=== PATIENT | female | born 1965 | race Caucasian/White ===

== ENCOUNTER 2016-11-13 22:24 | Emergency (ER) | payer MEDICARE ==
[2014-03-23 14:53] VITALS: BMI 38.2
[~2016-11-13 22:24] MED LIST: AMBIEN5 MG PO; ASACOL400 MG PO; BAYER CHEWABLE81 MG PO; CYCLOBENZAPRINE10 MG PO; CYMBALTA60 MG PO; ELAVIL10 MG PO; HYDROCODONE-APA1 TAB PO; LIBRAX CAPSULE1 CAP PO; LIPITOR40 MG PO; METAMUCIL FIB1 WAFER PO; NEXIUM40 MG PO; NITROSTAT0.4 MG SL; PHENERGAN25 M1 PO; PROAIR HFA8.5 GM INH; SYNTHROID100 MCG PO; TOPAMAX50 MG PO; TOPROL XL25 MG PO; VALIUM5 MG PO
[2016-11-13 23:11] LABS: BASOPHILS 0.5 % (0.0-2.0); EOSINOPHILS 1.1 % (0-7); HEMATOCRIT 44.8 % (36.0-48.0); HEMOGLOBIN 14.5 g/dL (12-16); IMMATURE GRANULOCYTES 0.2 % (0-5); LYMPHOCYTES 26.4 % (15-50); MCH 30.1 pg (26.0-34.0); MCHC 32.4 g/dL (31.0-37.0); MCV 92.9 fL (80.0-100.0); MEAN PLATELET VOLUME 10.3 fL (7.4-10.4); MONOCYTES 6.4 % (2-11); NEUTROPHILS 65.4 % (40-80); RBC 4.82 10x6/uL (4.00-5.40); RDW 12.9 % (11.5-14.5); WBC 8.2 10x3/uL (4.8-10.8)
[2016-11-13 23:14] LABS: PLATELET COUNT 175 10x3/uL (130-400)
[2016-11-13 23:21] LABS: ANION GAP 14.4 mmol/L (8-16); CALCIUM 8.8 mg/dL (8.5-10.1); POTASSIUM - SERUM 3.4 mmol/L (3.5-5.1)
== END 2016-11-14 | disposition home or self-care (01) ==
LOC: D.ER 22:24
PROVIDERS: Emergency Medicine
DX: L03.114 Cellulitis of left upper limb (principal); F17.200 Nicotine dependence, unspecified, uncomplicated; F32.9 Major depressive disorder, single episode, unspecified; E78.5 Hyperlipidemia, unspecified; E05.90 Thyrotoxicosis, unspecified without thyrotoxic crisis or storm; K50.90 Crohn's disease, unspecified, without complications